=== PATIENT | female | born 1970 | race Two or more races ===

== ENCOUNTER 2018-09-03 11:43 | Emergency (ER) | payer SELFPAY ==
[2017-02-11 11:00] VITALS: BP 115/64
[~2018-09-03] VITALS: Ht 170.2 cm; Wt 83.9 kg
[~2018-09-03 11:43] MED LIST: AMLO5TAB10 PO; ASPI-252 PO; ASPI-630 PO; CLON0.5T11 PO; ENOX80DI3 SQ; HYDR-2145 PO; LISI-334 PO; LISI1TAB7 PO; LOVA20TA2 PO; MECL25TA3 PO; METO50TA6 PO; NITR0.4T SL; PARO20TA3 PO; PARO30TA3 PO; RISP1TAB3 PO; TRAZ-86 PO; VORT10TA PO; WARF-31 PO; WARF-78 PO; WARF2TAB96 PO
--- NOTE | 2018-09-03 13:15 | PHYS DOC ---
Past Medical History Past Medical History: Anxiety, Depression, High Cholesterol, Hypertension, Stroke, Other Additional Past Medical Histor: MITRAL VALVE REPLACEMENT 2008 Past Surgical History: Appendectomy, Coronary Bypass Surgery, , Hysterectomy Additional Past Surgical Histo: MECHANICAL VALVE Alcohol Use: None Drug Use: None Adult General Chief Complaint Chief Complaint: HAND PROBLEM HPI HPI Patient is a 48 year old female who presents with swelling to the left hand since Saturday. She denies any trauma to the hand, but states it is tender. Denies any fevers at home. Rates her pain as 8 out of 10. States she's been taking Tylenol at home. Describes the pain is throbbing. Review of Systems Review of Systems Constitutional: Denies fever or chills [] Eyes: Denies change in visual acuity, redness, or eye pain [] HENT: Denies nasal congestion or sore throat [] Respiratory: Denies cough or shortness of breath [] Cardiovascular: No additional information not addressed in HPI [] GI: Denies abdominal pain, nausea, vomiting, bloody stools or diarrhea [] : Denies dysuria or hematuria [] Musculoskeletal: Denies back pain but reports swelling and tenderness to L hand.[] Integument: Denies rash or skin lesions [] Neurologic: Denies headache, focal weakness or sensory changes [] Endocrine: Denies polyuria or polydipsia [] Complete systems were reviewed and found to be within normal limits, except as documented in this note. Allergies Allergies Allergies Coded Allergies Type Severity Reaction Last Updated Verified Penicillins Allergy Intermediate 03/24/14 Yes chicken derived Allergy Intermediate Rash 03/24/14 No Physical Exam Physical Exam Constitutional: Well developed, well nourished, no acute distress, non-toxic appearance. [] HENT: Normocephalic, atraumatic, bilateral external ears normal, oropharynx moist, no oral exudates, nose normal. [] Eyes: PERRLA, EOMI, conjunctiva normal, no discharge. [] Neck: Normal range of motion, no tenderness, supple, no stridor. [] Cardiovascular:Heart rate regular rhythm, no murmur [] Lungs & Thorax: Bilateral breath sounds clear to auscultation [] Abdomen: Bowel sounds normal, soft, no tenderness, no masses, no pulsatile masses. [] Skin: Hot L hand, dry, no erythema, no rash. [] Back: No tenderness, no CVA tenderness. [] Extremities: Tenderness to L hand, edema to L hand. [] Neurologic: Alert and oriented X 3, normal motor function, normal sensory function, no focal deficits noted. [] Psychologic: Affect normal, judgement normal, mood normal. [] Current Patient Data Vital Signs Vital Signs Date Time Temp Pulse Resp B/P (MAP) Pulse Ox O2 Delivery O2 Flow Rate FiO2 09/03/18 12:25 97.8 58 16 124/22 (56) 96 Room Air 97.8 Lab Values Laboratory Tests Test 09/03/18 13:30 White Blood Count 7.3 x10^3/uL (4.0-11.0) Red Blood Count 4.69 x10^6/uL (3.50-5.40) Hemoglobin 13.1 g/dL (12.0-15.5) Hematocrit 39.0 % (36.0-47.0) Mean Corpuscular Volume 83 fL (79-100) Mean Corpuscular Hemoglobin 28 pg (25-35) Mean Corpuscular Hemoglobin Concent 34 g/dL (31-37) Red Cell Distribution Width 13.3 % (11.5-14.5) Platelet Count 282 x10^3/uL (140-400) Neutrophils (%) (Auto) 58 % (31-73) Lymphocytes (%) (Auto) 31 % (24-48) Monocytes (%) (Auto) 6 % (0-9) Eosinophils (%) (Auto) 3 % (0-3) Basophils (%) (Auto) 1 % (0-3) Neutrophils # (Auto) 4.3 x10^3uL (1.8-7.7) Lymphocytes # (Auto) 2.3 x10^3/uL (1.0-4.8) Monocytes # (Auto) 0.4 x10^3/uL (0.0-1.1) Eosinophils # (Auto) 0.3 x10^3/uL (0.0-0.7) Basophils # (Auto) 0.1 x10^3/uL (0.0-0.2) Sodium Level 141 mmol/L (136-145) Potassium Level 3.0 mmol/L (3.5-5.1) L Chloride Level 102 mmol/L (98-107) Carbon Dioxide Level 30 mmol/L (21-32) Anion Gap 9 (6-14) Blood Urea Nitrogen 19 mg/dL (7-20) Creatinine 0.8 mg/dL (0.6-1.0) Estimated GFR (Cockcroft-Gault) 76.2 BUN/Creatinine Ratio 24 (6-20) H Glucose Level 93 mg/dL (70-99) Uric Acid 7.0 mg/dL (2.6-6.0) H Calcium Level 9.1 mg/dL (8.5-10.1) Total Bilirubin 0.6 mg/dL (0.2-1.0) Aspartate Amino Transferase (AST) 20 U/L (15-37) Alanine Aminotransferase (ALT) 23 U/L (14-59) Alkaline Phosphatase 111 U/L (46-116) Total Protein 7.7 g/dL (6.4-8.2) Albumin 3.8 g/dL (3.4-5.0) Albumin/Globulin Ratio 1.0 (1.0-1.7) Laboratory Tests 09/03/18 13:30 Laboratory Tests 09/03/18 13:30 EKG EKG [] Radiology/Procedures Radiology/Procedures [][facility] [address] [place], [place] [id number] IMAGING REPORT Signed PATIENT: DYLON OCONNELL ACCOUNT: [id number] : 1970 LOCATION: ER AGE: 48 SEX: F EXAM STATUS: REG ER ORD. PHYSICIAN: MAURILIO LAURENT APRN REASON: pain/swelling since saturday. No known injury PROCEDURE: HAND LEFT 3V Three-view left hand study Clinical indications: Pain and swelling since Saturday. No known injury. FINDINGS: No acute fracture or dislocation or lytic process is evident. No periosteal reaction is evident. No soft tissue air or radiopaque foreign body is evident. IMPRESSION: No acute fracture. Electronically signed by: Ramin Pickens MD (09/03/2018 2:12 PM) [id number] Course & Med Decision Making Course & Med Decision Making Pertinent Labs and Imaging studies reviewed. (See chart for details) Patient has swelling to L hand, and tenderness. It is hot to touch. Will get Uric Acid, CBC, CMP, and X-ray. Labs show Uric Acid of 7.0. Patient has gout. Will prescribe steroid, give toradol, and colchicine. Amanda Disclaimer Amanda Disclaimer This electronic medical record was generated, in whole or in part, using a voice recognition dictation system. Departure Departure Impression: Primary Impression: Gout attack Disposition: 01 HOME, SELF-CARE Condition: STABLE Referrals: NO PCP (PCP) Patient Instructions: Gout Additional Instructions: Thank you for visiting [facility]. We appreciate you trusting us with your care. If any additional problems come up [facility]'t [facility] Please follow up with your primary care provider so they can plan additional care if needed and know about the problem that you had. If symptoms worsen come back to the Emergency Department. Any concerning symptoms that start such as chest pain, shortness of Air, weakness or numbness on one side of the body, running high fevers or any other concerning symptoms return to the ER. Please fill your medications at any pharmacy and follow the prescription instructions. Take Colchicine 1.2 mg followed by 0.6 mg one hour later. Take Naproxen for management as well as steroids. Scripts Naproxen (NAPROXEN) 500 Mg Tablet.dr 1 TAB PO BID PRN for PAIN for 10 Days, #20 TAB 1 Refill Prov: MAURILIO LAURENT APRN 09/03/18 Prednisone (PREDNISONE) 20 Mg Tablet 2 TAB PO DAILY for 5 Days, #10 TAB Prov: MAURILIO LAURENT APRN 09/03/18 Colchicine (COLCRYS) 0.6 Mg Tablet 0.6 MG PO 1X, #3 TAB Take 2 tablets and then one hour later take another tablet. Prov: MAURILIO LAURENT APRN 09/03/18 Problem Qualifiers Primary Impression: Gout attack Gout site: hand Gout etiology: unspecified cause Laterality: left Qualified Codes: M10.9 - Gout, unspecified MAURILIO LAURENT APRN Sep 03, 2018 13:15
[2018-09-03 13:45] LABS: BASO # 0.1 x10^3/uL (0.0-0.2); BASO % 1 % (0-3); EOS # 0.3 x10^3/uL (0.0-0.7); EOS % 3 % (0-3); HEMOGLOBIN 13.1 g/dL (12.0-15.5); LYMPH # 2.3 x10^3/uL (1.0-4.8); LYMPH % 31 % (24-48); MEAN CORPUSCULAR HEMOGLOBIN 28 pg (25-35); MEAN CORPUSCULAR HGB CONC 34 g/dL (31-37); MEAN CORPUSCULAR VOLUME 83 fL (79-100); MONO # 0.4 x10^3/uL (0.0-1.1); MONO % 6 % (0-9); NEUT # 4.3 x10^3uL (1.8-7.7); NEUT % 58 % (31-73); PLATELET COUNT 282 x10^3/uL (140-400); RED BLOOD COUNT 4.69 x10^6/uL (3.50-5.40); RED CELL DISTRIBUTION WIDTH 13.3 % (11.5-14.5); WHITE BLOOD COUNT 7.3 x10^3/uL (4.0-11.0)
[2018-09-03 14:01] LABS: CALCIUM 9.1 mg/dL (8.5-10.1); CREATININE 0.8 mg/dL (0.6-1.0); GFR 76.2
[2018-09-03 14:10] LABS: ALBUMIN 3.8 g/dL (3.4-5.0); TOTAL BILIRUBIN 0.6 mg/dL (0.2-1.0); TOTAL PROTEIN 7.7 g/dL (6.4-8.2)
--- NOTE | 2018-09-03 14:15 | RAD ---
Three-view left hand study Clinical indications: Pain and swelling since Ciro. No known injury. FINDINGS: No acute fracture or dislocation or lytic process is evident. No periosteal reaction is evident. No soft tissue air or radiopaque foreign body is evident. IMPRESSION: No acute fracture. Electronically signed by: Ramin Pickens MD (09/03/2018 2:12 PM) [id number]
[2018-09-03] MEDS ORDERED: COLC0.6T34 PO (14:27)
[2018-09-03] MEDS ORDERED: PRED20TA PO (14:27)
[2018-09-03] MEDS ORDERED: NAPR500T8 PO (14:28)
[2018-09-03] MEDS ORDERED: KETOROLAC 30 MG/ML VIAL. IM ONE (15:00)
== END 2018-09-03 15:17 | disposition home or self-care (01) ==
LOC: ER 11:43
DX: M10.9 Gout, unspecified (principal); E78.00 Pure hypercholesterolemia, unspecified; I10 Essential (primary) hypertension; Z86.73 Personal history of transient ischemic attack (TIA), and cerebral infarction without residual deficits; Z95.1 Presence of aortocoronary bypass graft; Z90.89 Acquired absence of other organs; Z90.710 Acquired absence of both cervix and uterus; Z88.0 Allergy status to penicillin; Z91.018 Allergy to other foods
CPT/HCPCS: 36415; 73130; 80053; 84550; 85025; 96372; 99285; J1885

== ENCOUNTER 2018-11-10 09:52 | Emergency (ER) | payer SELFPAY ==
[~2018-11-10] VITALS: Ht 170.2 cm; Wt 85.3 kg
[~2018-11-10 09:52] MED LIST changes: +CLON-77 PO; -CLON0.5T11 PO; +COLC0.6T34 PO; +LISI1TAB20 PO; -LISI1TAB7 PO; +NAPR500T8 PO; +PRED20TA PO
--- NOTE | 2018-11-10 10:24 | PHYS DOC ---
Past Medical History Past Medical History: Anxiety, Depression, High Cholesterol, Hypertension, Stroke, Other Additional Past Medical Histor: MITRAL VALVE REPLACEMENT 2008 Past Surgical History: Appendectomy, Coronary Bypass Surgery, , Hysterectomy Additional Past Surgical Histo: MECHANICAL VALVE Alcohol Use: None Drug Use: None Adult General Chief Complaint Chief Complaint: ABSCESS HPI HPI Patient is a 48-year-old female who presents to the emergency department for evaluation. She does not speak Croatian, and history was obtained via [place] interpretation line. The patient brings a clinic note with her from her PCPs office, from 5 days ago. She apparently had a dermoid cyst removed from her right face about 12 days ago. She saw her PCP on 11/05, for possible infection and swelling, and was started on Bactrim. Apparently she went back to the clinic today, because she was scheduled for suture removal today, and was sent to the emergency department for possible infection. She denies any fevers or chills. Palpation of the affected area worsens her pain. There are no alleviating factors to her symptoms. I spoke with the nurse at the [facility], apparently a [facility] where the patient had her surgery done about 12 days ago, by a Dr. Preciado, where she had some mole ,or other lesion removed from her face. The swelling seems to have worsened over the past several days, and the patient apparently went to the clinic again today to get her blood checked, she has her INR checked weekly because she takes warfarin, and was sent to the emergency department because of the swelling on the right side of her face. Review of Systems Review of Systems Constitutional: Denies fever or chills [] Eyes: Denies change in visual acuity, redness, or eye pain [] HENT: Denies nasal congestion or sore throat [] Respiratory: Denies cough or shortness of breath [] Cardiovascular: The patient denies any shortness of breath, chest pain, palpitations, or orthopnea [] GI: Denies abdominal pain, nausea, vomiting, bloody stools or diarrhea [] : Denies dysuria or hematuria [] Musculoskeletal: Denies back pain or joint pain [] Integument: Denies rash or skin lesions [] Neurologic: Denies headache, focal weakness or sensory changes [] Endocrine: Denies polyuria or polydipsia [] All other systems were reviewed and found to be within normal limits, except as documented in this note. Current Medications Current Medications Current Medications Medications (Trade) Dose Ordered Sig/Ren Start Time Stop Time Status Last Admin Dose Admin Info (CONTRAST GIVEN -- Rx MONITORING) 1 each PRN DAILY PRN 11/10/18 11:15 11/12/18 11:14 Iohexol (Omnipaque 300 Mg/ml) 60 ml 1X ONCE 11/10/18 11:15 11/10/18 11:16 DC 11/10/18 11:22 60 ML Sodium Chloride 1,000 ml @ 1,000 mls/hr 1X ONCE 11/10/18 11:30 11/10/18 12:29 11/10/18 11:43 1,000 MLS/HR Allergies Allergies Allergies Coded Allergies Type Severity Reaction Last Updated Verified Penicillins Allergy Intermediate 03/24/14 Yes chicken derived Allergy Intermediate Rash 03/24/14 No Physical Exam Physical Exam PHYSICAL EXAM: CONSTITUTIONAL: Well developed, well nourished HEAD: normocephalic, atraumatic EENT: PERRL, EOMI. Conjunctivae normal color, sclerae non-icteric; moist mucous membranes. There is a quarter dollar size area of soft tissue swelling, spherical in nature, on the right cheek, just anterior to the ramus of the mandible. There are 3 small incisions, with apparent sutures in place. The skin appears mildly erythematous, but the swelling does not appear to be originating from a cutaneous abscess. There is no drainage. There is no trismus. The area is moderately tender to touch. There is some bruising along the body of the mandible, likely layering of postprocedure bleeding. NECK: Supple, non-tender; no meningismus. LUNGS: Lungs CTA, breathing even and unlabored. Normal air movement. HEART: Regular rate and rhythm, a mechanical valve is present. CHEST: No deformity; non-tender ABDOMEN: The abdomen is soft, and non-tender, no masses or bruits. EXTREM: Normal ROM; no deformity, no calf tenderness. Normal pulses palpable in all extremities. There is no pedal edema. SKIN: No rash; no diaphoresis NEURO: Alert; normal speech and cognition; CN's grossly intact; strength grossly intact without focal deficit. BACK: No CVA TTP. Current Patient Data Vital Signs Vital Signs Date Time Temp Pulse Resp B/P (MAP) Pulse Ox O2 Delivery O2 Flow Rate FiO2 11/10/18 10:09 97.9 64 20 101/67 (78) 96 Room Air 97.9 Lab Values Laboratory Tests Test 11/10/18 10:40 White Blood Count 8.1 x10^3/uL (4.0-11.0) Red Blood Count 4.96 x10^6/uL (3.50-5.40) Hemoglobin 13.6 g/dL (12.0-15.5) Hematocrit 40.8 % (36.0-47.0) Mean Corpuscular Volume 82 fL (79-100) Mean Corpuscular Hemoglobin 28 pg (25-35) Mean Corpuscular Hemoglobin Concent 33 g/dL (31-37) Red Cell Distribution Width 13.9 % (11.5-14.5) Platelet Count 276 x10^3/uL (140-400) Neutrophils (%) (Auto) 62 % (31-73) Lymphocytes (%) (Auto) 28 % (24-48) Monocytes (%) (Auto) 7 % (0-9) Eosinophils (%) (Auto) 3 % (0-3) Basophils (%) (Auto) 1 % (0-3) Neutrophils # (Auto) 5.0 x10^3/uL (1.8-7.7) Lymphocytes # (Auto) 2.3 x10^3/uL (1.0-4.8) Monocytes # (Auto) 0.6 x10^3/uL (0.0-1.1) Eosinophils # (Auto) 0.2 x10^3/uL (0.0-0.7) Basophils # (Auto) 0.0 x10^3/uL (0.0-0.2) Prothrombin Time 50.7 SEC (11.7-14.0) H Prothrombin Time INR 5.5 (0.8-1.1) *H Sodium Level 138 mmol/L (136-145) Potassium Level 3.8 mmol/L (3.5-5.1) Chloride Level 102 mmol/L (98-107) Carbon Dioxide Level 29 mmol/L (21-32) Anion Gap 7 (6-14) Blood Urea Nitrogen 25 mg/dL (7-20) H Creatinine 1.2 mg/dL (0.6-1.0) H Estimated GFR (Cockcroft-Gault) 47.7 Glucose Level 105 mg/dL (70-99) H Calcium Level 9.0 mg/dL (8.5-10.1) Laboratory Tests 11/10/18 10:40 Laboratory Tests 11/10/18 10:40 EKG EKG [] Radiology/Procedures Radiology/Procedures [PROCEDURE: CT MAXILLOFACIAL W/CONTRAST CT study of maxillofacial bones with contrast Clinical indications: Postop right cheek swelling. Evaluate for abscess. TECHNIQUE: After IV infusion of 60 cc of Omnipaque 300, helical CT scanning of the maxillofacial bones was performed. PQRS compliance Statement One or more of the following individualized dose reduction techniques were utilized for this study: 1. Automated exposure control 2. Adjustment of the mA and/or kV according to patient size 3. Use of iterative reconstruction technique FINDINGS: Within the right lateral face superficial to the right masseter muscle and anterior to the right parotid gland is a subcutaneous mass lesion measuring 3.0 cm in AP dimension and 2.4 cm in transverse dimension and 2.4 cm in vertical dimension. There is an anterior superior hypodense component measuring 1.1 cm size. Otherwise the rest of the lesion demonstrates Hounsfield unit measurements corresponding in the upper 60s. Therefore, this may represent a solid component or denser component related to recent hemorrhage. This does not have the typical appearance of a rim-enhancing abscess. Right cervical lymph nodes are seen. The largest lymph node is seen just inferior to this area just below the angle of the mandible measuring 1.3 cm in size. Left cervical lymph nodes are seen. The largest is seen just superficial to the left submandibular gland but deep to the superficial fascia measuring 2.1 cm in size. This could represent an accessory submandibular salivary gland. There is thickening of the palatine tonsils on both sides. There is thickening of the sublingual tonsils within the valleculae. Therefore, pharyngitis is a possibility. No lytic process is seen. No acute fracture is evident. No air-fluid levels or opacification of the paranasal sinuses or mastoid sinuses or middle ear cavities is seen. Incidental note is made of encephalomalacia of the left occipital lobe with dilatation of the adjacent left lateral ventricular occipital horn. This is consistent with an old cortical infarct. The orbits are symmetric. IMPRESSION: Subcutaneous right lateral soft tissue mass as discussed above. This could represent soft tissue neoplasm or enlarged lymph node. History of recent surgery of the right cheek. Correlation with surgical history is needed. This could represent postoperative hematoma in this area. This does not exhibit the peripheral rim enhancing fluid collection typically seen with an abscess. Sterility of this lesion cannot be determined by CT however. Bilateral cervical lymphadenopathy. The most prominent nodule on the left side could represent an accessory left submandibular salivary gland. Enlargement of the palatine tonsils bilaterally and enlargement of the sublingual tonsils filling the valleculae. This may be seen with pharyngitis. Correlation with oral pharyngeal examination is recommended.] Course & Med Decision Making Course & Med Decision Making Pertinent Labs and Imaging studies reviewed. (See chart for details) [] 10:30 AM I was able to get a hold of the physician who performed the procedure, his name is Dr. Hayder Michel. He states he removed a sebaceous cyst on the patient's face, and washed the wound out completely. He states that the patient did continue her warfarin throughout the perioperative period. 12:10 PM: The patient's condition remained stable. Differential diagnostic considerations include a developing abscess, as well as a postoperative hematoma/hemorrhage, which has developed in the sac remaining after sebaceous cyst drainage. This might be sterile or infected. The skin does not appear to have signs of significant infection, or cutaneous abscess, making incision and drainage also less likely be indicated at this time.. I spoke with Dr. Hayder Michel Again we discussed the plan of care. Although needle aspiration might be reasonable, given the patient's elevated INR at this time, I do not want to risk further hemorrhage. Malignancy is considered unlikely based on hist ory. The plan will be to switch the patient's antibiotic to clindamycin, have her hold her Coumadin for the next 2 days, and she will follow-up with Dr. Hayder Michel at the [facility] urgent care location, this coming Saturday, when he will be at that facility, for further evaluation and treatment. I do not feel that given the elevated INR at this time, it is safe to do a needl e aspiration or incision and drainage, given the nonemergent nature of the patient's condition, it is more advisable to wait until her INR is more in line with a therapeutic level, before needle aspiration would be attempted. Instructions will be discussed with the patient explicitly using the indonesian language line. Dragon Disclaimer Dragon Disclaimer This electronic medical record was generated, in whole or in part, using a voice recognition dictation system. Departure Departure Impression: Primary Impression: Fluid collection at surgical site Disposition: HOME, SELF-CARE Condition: STABLE Referrals: UNKNOWN PCP NAME (PCP) Additional Instructions: Applying ice to the affected area may help improve your symptoms. Follow-up with Hayder Michel, at the [facility], urgent care ocation, this coming Saturday. He will be at this facility on Saturday, and Saturday, between 9 AM and 5 PM. [facility], urgent care location: [address] [place] [address] Your INR was 5.5 today. Stop taking your Coumadin, until your follow-up appointment on Saturday, when your INR can be rechecked. Stop taking the Bactrim, and begin taking the new antibiotic, clindamycin, 3 times daily. Return to medical care for any new or worsening symptoms, development of increasing pain, swelling, difficulty speaking or breathing, or any other new or concerning symptoms. Scripts Clindamycin Hcl (CLINDAMYCIN HCL) 300 Mg Capsule 1 CAP PO TID, #30 CAP Prov: ANTOINETTE FALL MD 11/10/18 ANTOINETTE FALL MD Nov 10, 2018 10:24
[2018-11-10 11:03] LABS: CREATININE 1.2 mg/dL (0.6-1.0); GFR 47.7; POTASSIUM 3.8 mmol/L (3.5-5.1)
[2018-11-10 11:07] LABS: BASO % 1 % (0-3); EOS # 0.2 x10^3/uL (0.0-0.7); EOS % 3 % (0-3); HEMATOCRIT 40.8 % (36.0-47.0); HEMOGLOBIN 13.6 g/dL (12.0-15.5); LYMPH # 2.3 x10^3/uL (1.0-4.8); LYMPH % 28 % (24-48); MEAN CORPUSCULAR HEMOGLOBIN 28 pg (25-35); MEAN CORPUSCULAR HGB CONC 33 g/dL (31-37); MEAN CORPUSCULAR VOLUME 82 fL (79-100); MONO # 0.6 x10^3/uL (0.0-1.1); MONO % 7 % (0-9); NEUT % 62 % (31-73); PLATELET COUNT 276 x10^3/uL (140-400); RED BLOOD COUNT 4.96 x10^6/uL (3.50-5.40); RED CELL DISTRIBUTION WIDTH 13.9 % (11.5-14.5); WHITE BLOOD COUNT 8.1 x10^3/uL (4.0-11.0)
[2018-11-10] MEDS ORDERED: CONTRAST GIVEN. MC PRN (11:15)
[2018-11-10] MEDS ORDERED: IOHEXOL 300 MG/ML 100ML VIAL. IV ONE (11:15)
[2018-11-10 11:25] LABS: PROTHROMBIN TIME PATIENT 50.7 SEC (11.7-14.0)
[2018-11-10] MEDS ORDERED: IV NORMAL SALINE 1000ML BAG 1,000 ML IV ONE (11:30)
--- NOTE | 2018-11-10 11:50 | RAD ---
CT study of maxillofacial bones with contrast Clinical indications: Postop right cheek swelling. Evaluate for abscess. TECHNIQUE: After IV infusion of 60 cc of Omnipaque 300, helical CT scanning of the maxillofacial bones was performed. PQRS compliance Statement One or more of the following individualized dose reduction techniques were utilized for this study: 1. Automated exposure control 2. Adjustment of the mA and/or kV according to patient size 3. Use of iterative reconstruction technique FINDINGS: Within the right lateral face superficial to the right masseter muscle and anterior to the right parotid gland is a subcutaneous mass lesion measuring 3.0 cm in AP dimension and 2.4 cm in transverse dimension and 2.4 cm in vertical dimension. There is an anterior superior hypodense component measuring 1.1 cm size. Otherwise the rest of the lesion demonstrates Hounsfield unit measurements corresponding in the upper 60s. Therefore, this may represent a solid component or denser component related to recent hemorrhage. This does not have the typical appearance of a rim-enhancing abscess. Right cervical lymph nodes are seen. The largest lymph node is seen just inferior to this area just below the angle of the mandible measuring 1.3 cm in size. Left cervical lymph nodes are seen. The largest is seen just superficial to the left submandibular gland but deep to the superficial fascia measuring 2.1 cm in size. This could represent an accessory submandibular salivary gland. There is thickening of the palatine tonsils on both sides. There is thickening of the sublingual tonsils within the valleculae. Therefore, pharyngitis is a possibility. No lytic process is seen. No acute fracture is evident. No air-fluid levels or opacification of the paranasal sinuses or mastoid sinuses or middle ear cavities is seen. Incidental note is made of encephalomalacia of the left occipital lobe with dilatation of the adjacent left lateral ventricular occipital horn. This is consistent with an old cortical infarct. The orbits are symmetric. IMPRESSION: Subcutaneous right lateral soft tissue mass as discussed above. This could represent soft tissue neoplasm or enlarged lymph node. History of recent surgery of the right cheek. Correlation with surgical history is needed. This could represent postoperative hematoma in this area. This does not exhibit the peripheral rim enhancing fluid collection typically seen with an abscess. Sterility of this lesion cannot be determined by CT however. Bilateral cervical lymphadenopathy. The most prominent nodule on the left side could represent an accessory left submandibular salivary gland. Enlargement of the palatine tonsils bilaterally and enlargement of the sublingual tonsils filling the valleculae. This may be seen with pharyngitis. Correlation with oral pharyngeal examination is recommended. Electronically signed by: Ramin Pickens MD (11/10/2018 11:47 AM) [facility] OF [facility]
[2018-11-10] MEDS ORDERED: CLIN300C8 PO (12:22)
[2018-11-10 13:00] VITALS: BP 101/62
== END 2018-11-10 13:10 | disposition home or self-care (01) ==
LOC: ER 09:52
DX: T81.89XA Other complications of procedures, not elsewhere classified, initial encounter (principal); E78.00 Pure hypercholesterolemia, unspecified; I10 Essential (primary) hypertension; Z86.73 Personal history of transient ischemic attack (TIA), and cerebral infarction without residual deficits; Z95.1 Presence of aortocoronary bypass graft; Z88.0 Allergy status to penicillin; Z91.018 Allergy to other foods
CPT/HCPCS: 36415; 70487; 80048; 85025; 85610; 99285; J7030; Q9967

== ENCOUNTER → 2020-11-30 | Outpatient (CLI) | payer OTHER ==
[~2020-11-30] MED LIST changes: +AMLO-186 PO; -AMLO5TAB10 PO; +CLIN-94 PO; -LISI-334 PO; +LISI20TA18 PO; +MECL-75 PO; -MECL25TA3 PO; -NITR0.4T SL; +NITR0.4T24 SL; -RISP1TAB3 PO; +RISP1TAB88 PO; +TRAZ-123 PO; -TRAZ-86 PO; -WARF-78 PO; +WARF5TAB2 PO
--- NOTE | 2020-11-30 15:07 | RAD ---
XR HAND_LEFT 3 VIEWS DATE: 11/30/2020 11:58 AM INDICATION: LEFT LATERAL HAND PAIN SINCE FALL. PAIN AND SWELLING LEFT WRIST. COMPARISON: None. FINDINGS: Bones: There is no evidence of acute fracture or dislocation. Joints: The joint spaces are normal. Miscellaneous: None. IMPRESSION: No evidence of acute fracture. Electronically signed by: Patrice Tee MD (11/30/2020 3:04 PM) [id number]
== END ==
LOC: RAD 11:36
PROVIDERS: ATTEND Family Medicine
DX: M79.642 Pain in left hand (principal); M25.432 Effusion, left wrist
CPT/HCPCS: 73130

== ENCOUNTER → 2021-01-30 | Outpatient (CLI) | payer OTHER ==
[~2021-01-30] MED LIST changes: +GADOTERATE 7.5 MMOL/15ML VIAL. IVP ONE; -LISI1TAB20 PO; +LISI1TAB39 PO
--- NOTE | 2021-01-30 11:02 | RAD ---
EXAMINATION: Magnetic resonance imaging (MRI) of the brain and brainstem without and with contrast 8:24 AM HISTORY: Multiple falls, hyperreflexia TECHNIQUE: Multiplanar multi-weighted MRI of the brain and brainstem was performed without and with i ntravenous contrast using the general brain protocol. Contrast information: 18 mL Gadolinium based contrast COMPARISON: CT head 07/17/2016. FINDINGS: The scalp and calvarium are normal. The superior sagittal sinus demonstrates normal venous flow. The corpus callosum is normal in shape and signal intensity. The posterior fossa is unremarkable. The p ituitary and sella are normal. The brainstem and craniocervical junction are unremarkable. Remote is chemic changes identified with associated encephalomalacia within a small region of the right frontal operculum, along the right superior parietal lobe and involving a moderate territory of the left occ ipital lobe with associated expected dilatation of the left lateral ventricle. There is no hydrocepha zion. Diffusion weighted images reveal no hyperintensities to suggest acute cerebral infarction. Punctate a scarlet of susceptibility artifact identified within the right frontal operculum the site of remote ische enriqueta suggestive of an area of microhemorrhage. There are no areas of abnormal contrast enhancement. The paranasal sinuses are normal. The visualized portions of the mastoids are unremarkable. The orbi ts appear normal. Normal flow voids are demonstrated in the carotid arteries and basilar artery. IMPRESSION: 1. No evidence for acute or subacute ischemia. 2. No acute intracranial hemorrhage. 3. 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 Punctate area of microhemorrhage identified within the right frontal operculum. Electronically signed by: Shelley Franco MD (01/30/2021 11:00 AM) [id number]
== END ==
LOC: MRI 07:46
PROVIDERS: ATTEND Family Medicine
DX: I67.82 Cerebral ischemia (principal); G93.89 Other specified disorders of brain; R29.2 Abnormal reflex; R29.6 Repeated falls
CPT/HCPCS: 70553; A9575